=== PATIENT | female | born 1955 | race Caucasian/White ===

== ENCOUNTER → 2018-01-31 16:17 | Outpatient (CLI) | payer OTHER, SELFPAY ==
[2018-02-05 09:25] LABS: HPV Reflexed? NOT INDICATED
== END ==
PROVIDERS: Family Provider Family Medicine; PCP Family Medicine; Visit Provider Family Medicine
DX: R30.0 Dysuria (principal); Z12.4 Encounter for screening for malignant neoplasm of cervix
CPT/HCPCS: 87086; 87088; 88175; G0145

== ENCOUNTER → 2018-02-03 13:15 | Outpatient (CLI) | payer OTHER, SELFPAY ==
[2018-02-03 15:35] LABS: Absolute Lymphocyte Count 2.28 X10^3/ul (0.83-4.51); Absolute Neutrophil Count 4.2 X10^3/uL (2.0-7.7); Basophil# 0.02 X10^3/uL; Basophil% 0.3 % (0-1); Eosinophils% 1.4 % (0-5); Hematocrit 44.5 % (37-47); Hemoglobin 14.5 g/dl (12.0-15.0); Lymphocyte # 2.28 X10^3/ul (4.0); Lymphocyte % 32.1 % (19-41); Mean Corp Hgb Conc 32.6 g/gl (32-36); Mean Corpuscular Volume 95.1 fL (81-99); Mean Platelet Vol. 9.9 fl (6.2-12.0); Monocyte# 0.53 X10^3/uL; Monocyte% 7.5 % (0-10); Neutrophil # 4.17 X10^3/uL (2.7-7.7); Neutrophil % 58.6 % (47-70); Platelet Count 292 K/mm3 (150-450); RBC Distribution Width CV 14.9 % (11.6-14.6); RBC Distribution Width SD 50.6 fl (35.1-43.9); Red Blood Count 4.68 M/mm3 (4.2-5.4); White Blood Count 7.1 K/mm3 (4.4-11.0)
[2018-02-03 15:58] LABS: ALB/GLOB Ratio 1.1 RATIO (0.9-2.4); AST(SGOT) 20 U/L (15-37); Alanine Aminotransfer ALT/SGPT 38 U/L (13-56); Albumin, Serum 3.9 g/dL (3.2-5.0); Alkaline Phosphatase 89 U/L (45-117); Anion Gap 4 (5-15); BUN 19 mg/dL (7-18); BUN/Creat Ratio 24.1 RATIO (10-20); Calcium,Total 8.4 mg/dL (8.5-10.1); Chloride 107 mmol/L (98-107); Cholesterol 183 mg/dL (200); Creatinine, Serum 0.79 mg/dL (0.55-1.02); EST Glomerular Filtration Rate 78 mL/min (>60); Est Glom Filt Rate - Afr Amer 95 mL/min (>60); Globulin 3.7 g/dL (2.2-4.2); Glucose 97 mg/dL (74-106); High Density Lipoprotein 42 mg/dL; Potassium 3.9 mmol/L (3.5-5.1); Protein, Total 7.6 g/dL (6.4-8.2); Sodium Level 139 mmol/L (136-145); Thyroid Stim Hormone (TSH) 1.13 uIU/mL (0.358-3.74); Triglycerides 133 mg/dL; Very Low Density Lipoprotein 27 mg/dL (5-40)
[2018-02-03 16:08] LABS: POSITIVE COUNT NO; POSITIVE DIFFERENTIAL NO; POSITIVE MORPHOLOGY NO
== END ==
PROVIDERS: PCP Family Medicine; Visit Provider Family Medicine
DX: Z01.419 Encounter for gynecological examination (general) (routine) without abnormal findings (principal); E66.9 Obesity, unspecified
CPT/HCPCS: 36415; 80053; 80061; 84443; 85025

== ENCOUNTER → 2018-02-11 16:32 | Outpatient (CLI) | payer OTHER, SELFPAY ==
[2018-02-11 16:35] LABS: Bacteria 0 SEEN /hpf (None Seen); Mucous, Urine 0 SEEN /hpf (<or=2+); Red Blood Cells-Urine 0 SEEN /hpf (0-5); Squamous Epithelial Cells - UA 0 SEEN /hpf (5-10); White Blood Cells 0 SEEN /hpf (0-5)
[2018-02-11 17:23] LABS: Color, Urine Yellow (Yellow); Glucose, Dipstick Normal (Normal); Ketone-Dipstick Negative (Negative); Leukocyte Esterase-Dipstick Negative /ul (Negative); Nitrite-Dipstick Negative (Negative); Occult Blood-Urine Negative /ul (Negative); Protein-Dipstick Negative (Negative); Specific Gravity, Urine 1.025 (1.002-1.030); Urine Bilirubin Dipstick Negative (Negative); Urine Clarity Clear (Clear); Urine Urobilinogen Normal (Normal)
[2018-02-11 17:40] LABS: Uric Acid Crystals Ur 1+ /hpf (<or=1+)
--- OUTSIDE RECORDS SUMMARY | 2018-05-16 05:15 | XMS RPT_ITS ---
:1955 Author Organization [place] Care Team Providers Name Role Phone Diane Sierra Attending Unavailable Diane Sierra Primary Care Unavailable Diane Sierra Attending Unavailable Diane Sierra Primary Care Unavailable Diane Sierra Attending Unavailable PROBLEMS PROBLEMS DATE TYPE CONDITION / CODE ATTENDING STATUS SOURCE 02/11/2018 Unknown N39.0 - Urinary Diane Sierra Active [place] tract infection, Community site not Hospital specified / Repository N39.0(ICD-10) 02/03/2018 Unknown R30.0 - Dysuria Diane Sierra Active [place] / R30.0(ICD-10) [facility] Repository PROCEDURES PROCEDURES No Procedure Records FoundRESULTS RESULTS URINALYSIS, COMPLETE Collected: 02/11/2018 Status: F Source: [place] 4:34 PM [facility] REPOSITORY Order Comment: How was Urine Obtained? Urine, Random TYPE CODE TESTS RESULT OUT OF RANGE REFERENCE UNITS LAB L400.3000 Yellow COLOR Normal Yellow LAB L400.3050 Clear Normal CLARITY Clear LAB L400.3200 Normal mg/dl Normal GLUCOSE, UR Normal LAB L400.3300 Negative mg/dL Normal BILIRUBIN URINE Negative LAB L400.3400 Negative mg/dl Normal KETONE UR Negative LAB L400.3465 1.002-1.030 Normal SP.GR. DIPSTX 1.025 LAB L400.3550 5.0 - 8.0 pH UR Normal 5.0 LAB L400.3600 Negative mg/dl PROT Normal DIPSTX Negative LAB L400.3700 Normal mg/dl Normal UROBILI Normal LAB L400.3750 Negative Normal NITRITE UR Negative LAB L400.3780 Negative /ul Normal OCCULT BLOOD-UR Negative LAB L400.3800 Negative /ul LEUK Normal ESTERASE Negative LAB L400.4050 0-5 /hpf WBC 0 Normal SEEN LAB L400.4100 0-5 /hpf 0 Normal RBC-UA SEEN LAB L400.4150 5-10 /hpf SQUAM 0 Normal EPI SEEN LAB L400.4300 None Seen /hpf 0 Normal BACTERIA SEEN LAB L400.4350 <or=2+ /hpf 0 Normal MUCUS, URINE SEEN LAB L400.4750 <or=1+ /hpf URIC 1+ Normal CRYSTALS Performed By: #### L400.0001 #### [facility] [address] [place], [address] Observed: 02/11/2018 Status: F Source: [place] CULTURE, URINE 4:34 PM [facility] REPOSITORY Urine Culture ORGANISM 1: Mixed Gram Pos AND Gram Neg Org Ruffin Count 1000-10,000 MIX CULTURE Mixed contaminants. Submit a new specimen if indicated. Performed By: #### M100.0650 #### [facility] [address] [place], [address] COMPREHENSIVE METABOLIC Collected: 02/03/2018 Status: F Source: [place] PROFIL 1:19 PM [facility] REPOSITORY TYPE CODE TESTS RESULT OUT OF RANGE REFERENCE UNITS LAB L501.0100 74-106 mg/dL Normal GLU 97 Result Comment: Please note revised GLUCOSE reference range effective 2017. LAB L501.1000 7-18 mg/dL High BUN 19 LAB L501.1100 0.55-1.02 mg/dL Normal CREAT,SERUM 0.79 Result Comment: The validity of the calculated GFR AND GFRAA in patients over 70 years has not been determined. Clinical correlation is essential. LAB L501.1110 >60 mL/min Normal EST GFR 78 Result Comment: Non- GFR Calc LAB L501.1115 >60 mL/min Normal EST GFR - AA 95 Result Comment: GFR Calc LAB L501.1300 10-20 RATIO High BUN/CRE 24.1 LAB L501.1500 6.4-8.2 g/dL T Normal PROT 7.6 LAB L501.1800 3.2-5.0 g/dL Normal ALB 3.9 LAB L501.1950 2.2-4.2 g/dL Normal GLOB 3.7 LAB L501.2000 0.9-2.4 RATIO Normal A/G 1.1 LAB L501.2200 8.5-10.1 mg/dL Low CA 8.4 LAB L501.4100 15-37 U/L Normal AST 20 LAB L501.4305 45-117 U/L Normal ALK P 89 LAB L501.4405 13-56 U/L Normal ALT 38 LAB L501.4600 0.20-1.00 mg/dL T Normal BILI 0.40 LAB L501.5300 136-145 mmol/L NA Normal 139 LAB L501.5600 3.5-5.1 mmol/L K Normal 3.9 LAB L501.5900 98-107 mmol/L CL Normal 107 LAB L501.6100 21.0-32.0 mmol/L Normal CO2 28.0 LAB L501.6200 5-15 Low GAP 4 Performed By: #### L500.4050, L500.4100, L501.9520 #### [facility] [address] [facility] [place], [place], [id number] LIPID PROFILE Collected: 02/03/2018 Status: F Source: [place] 1:19 PM [facility] REPOSITORY TYPE CODE TESTS RESULT OUT OF RANGE REFERENCE UNITS LAB L501.4900 200 mg/dL Normal CHOL 183 Result Comment: <200 mg/dL Desirable 200-240 mg/dL Borderline >240 mg/dL High Risk LAB L501.5000 mg/dL Normal TRIG 133 Result Comment: The drugs N-Acetylcysteine and Metamizole may falsely depress this assay. Serum Triglycerides Reference Interval Normal <150 mg/dL Borderline high 150 - 199 mg/dL High 200 - 499 mg/dL Very High > or = 500 mg/dL LAB L501.6400 mg/dL Normal HDL 42 Result Comment: The drugs N-Acetylcysteine and Metamizole may falsely depress this assay. Reference Range HDL <40 mg/dL Low HDL Cholesterol HDL >or= 60 mg/dL High HDL Cholesterol LAB L501.6500 0-130 mg/dL Normal LDL 114 LAB L501.6600 5-40 mg/dL Normal VLDL 27 Performed By: #### L500.4050, L500.4100, L501.9520 #### [facility] [address] [facility] [facility] [place], [place], [id number] THYROID STIM HORMONE Collected: 02/03/2018 Status: F Source: [place] (TSH) 1:19 PM [facility] REPOSITORY TYPE CODE TESTS RESULT OUT OF RANGE REFERENCE UNITS LAB L501.9520 0.358-3.74 uIU/mL Normal TSH 1.13 Performed By: #### L500.4050, L500.4100, L501.9520 #### [facility] [place], [address] CBC W/DIFF, AUTOMATED Collected: 02/03/2018 Status: F Source: [place] 1:19 PM [facility] REPOSITORY TYPE CODE TESTS RESULT OUT OF RANGE REFERENCE UNITS LAB L100.1000 4.4-11.0 K/mm3 Normal WBC 7.1 LAB L100.1200 4.2-5.4 M/mm3 Normal RBC 4.68 LAB L100.1300 12.0-15.0 g/dl Normal HGB 14.5 LAB L100.1400 37-47 % Normal HCT 44.5 LAB L100.1500 81-99 fL Normal MCV 95.1 LAB L100.1600 27.0-32.0 pg Normal MCH 31.0 LAB L100.1700 32-36 g/gl Normal MCHC 32.6 LAB L100.1810 11.6-14.6 % High RDW CV 14.9 LAB L100.1820 35.1-43.9 fl High RDW SD 50.6 LAB L100.1900 150-450 K/mm3 Normal PLT 292 LAB L100.2000 6.2-12.0 fl Normal MPV 9.9 LAB L100.2100 47-70 % Normal NEUT% 58.6 LAB L100.2200 19-41 % Normal LY% 32.1 LAB L100.2300 0-10 % Normal MONO% 7.5 LAB L100.2400 0-5 % Normal EO% 1.4 LAB L100.2500 0-1 % Normal BASO% 0.3 LAB L100.2550 0.0-0.9 % Normal IM GRAN % 0.100 Result Comment: IG% - Immature Granulocytes (promyelocytes, myelocytes and metamyelocytes) > 1% indicates that a LEFT SHIFT is Present. LAB L100.2620 2.0-7.7 X10 3/uL Normal Absolute Neut 4.2 LAB L100.2720 0.83-4.51 X10 3/ul Normal Absolute Lymph 2.28 Performed By: #### L100.0100 #### [facility] [address] [place], [address] Observed: 01/31/2018 Status: F Source: [place] CULTURE, URINE 4:19 PM [facility] REPOSITORY Urine Culture Group B Streptococcus isolated from culture. ORGANISM 1: Mixed Gram Pos AND Gram Neg Org Ruffin Count >100,000 MIX CULTURE Mixed contaminants. Submit a new specimen if indicated. ORGANISM 2: Gram positive organism Ruffin Count >100,000 Performed By: #### M100.0650 #### [facility] [address] [place], [address] PAP I-G W/RFX HRHPV Collected: 01/31/2018 Status: F Source: [place] 4:19 PM [facility] REPOSITORY Order Comment: CYTOLOGY INFORMATION: - CLINICAL INFORMATION: - DATE LMP/MENOPAUSE: MENOPAUSE - COLLECTION VIAL: Thin Prep Vial - CUSTOMER SERVICES SUPERVISOR SOURCE: CERVICAL/ENDOCERVICAL - COLLECTION TECHNIQUE: CX BROOM ONLY Specimen Comment: [id number] Specimen Comment: Source.............Cervix;Endocervix Specimen Comment: Other..............Post Menopausal Specimen Comment: No. of containers..01 ThinPrep Vial TYPE CODE TESTS RESULT OUT OF RANGE REFERENCE UNITS LAB L7400.0800 . Normal DIAGN Comment Result Comment: NEGATIVE FOR INTRAEPITHELIAL LESION AND MALIGNANCY. LAB L7400.0900 . Normal ADEQ Comment Result Comment: Satisfactory for evaluation. Endocervical and/or squamous metaplastic cells (endocervical component) are present. LAB L7400.1400 . Normal PERFORM Comment Result Comment: Elias Pelayo, Stem Roller Operator (ASCP) LAB L7400.2575 . Normal TEST METHOD Comment Result Comment: This liquid based ThinPrep(R) pap test was screened with the use of an image guided system. LAB L7400.2600 . Normal . COMM LAB L7400.2700 . Normal PAPSMR Comment Result Comment: The Pap smear is a screening test designed to aid in the detection of premalignant and malignant conditions of the uterine cervix. It is not a diagnostic procedure and should not be used as the sole means of detecting cervical cancer. Both false-positive and false-negative reports do occur. LAB L7400.2800 . Normal HPV RFLX Comment Result Comment: The HPV DNA reflex criteria were not met with this specimen result therefore, no HPV testing was performed. Performed at: - [facility] [id number] Steward/Stewardess Second Class: Fide Eugene MD, Phone: [phone] Performed By: #### L7400.0350 #### [facility] (refer to report for specific site) refer to report for address and phone number ALLERGIES ALLERGIES No Allergies Records FoundENCOUNTERS ENCOUNTERS ADMIT/DISCHARGE ACCOUNT ADMITTING ENCOUNTER LOCATION SOURCE NUMBER CLASS 02/11/2018 [id number] Ambulatory [place] [facility] ing:BFHLAB Repository 02/03/2018 [id number] [facility] [place] 0 [facility] ing:BFHLAB Repository 01/31/2018 [id number] [facility] [place] 6 [facility] ing:BFHLAB Repository PAYERS PAYERS ENCOUNTER GUARANTOR PAYER SUBSCRIBER SOURCE [facility]11[facility]2018 [facility] Insurance:[facility]NAFair[facility]en[facility], Number: [id number] [address]Efe: [id number] Repository Date:[id number] [address] () [id number] [place] [id number]: 02/11/2018 Secondary NOT GIVENUNK [place] Insurance:SELF PAY [facility] Number: Effective Repository Date:2018-02-11 02/03/2018 [facility] Tddjoox9571 [place] Insurance:AETNAPolWashington University [facility] CenterenD[facility]: [facility], Number: [id number]-[facility]onc[facility] [address]Afm: [id number] Repository Date:[id number] BOX (GD) [id number] [place] [id number]: 02/03/2018 Secondary NOT GIVENUNK [place] Insurance:SELF PAY [facility] Number: Effective Repository Date:2018-02-03 01/31/2018 [facility] Tatiana Dimasen[address] U[place] Insurance:AETNAPolnicky BrackenDOB: Community [facility], Number: [id number]-Canonc[facility] [address]Sno: [id number] Repository Date:[id number] BOX (RD) [id number] [place] [phone]: 01/31/2018 Secondary NOT GIVENUNK [place] Insurance:SELF PAY [facility] Number: Effective Repository Date:2018-01-31
== END ==
PROVIDERS: Family Provider Family Medicine; PCP Family Medicine; Visit Provider Family Medicine
DX: N39.0 Urinary tract infection, site not specified (principal)
CPT/HCPCS: 81001; 87086; 87088

== ENCOUNTER 2022-03-28 12:08 | Emergency (ER) | payer MEDICARE, SELFPAY ==
[2022-03-28 12:09] VITALS: BP 154/82; PULSE 76; RESP 14; TEMP 36.7; O2SAT 98; BMI 37.6
--- NOTE | 2022-03-28 12:50 | CT_ITS ---
STUDY: CTA CHEST, ABDOMEN T PELVIS WITH CONTRAST REASON FOR EXAM: Female, 66 years old. Pain, syncope RADIATION DOSAGE (If Supplied By Facility): CTDIvol = ( 22.77 ) mGy, DLP = ( 2303.25 ) mGycm TECHNIQUE: Transaxial imaging was performed following intravenous administration of IV 100mL Isovue-370. Multiplanar coronal and sagittal images were reformatted. Individualized dose optimization techniques were used for this CT. COMPARISON: No relevant priors. FINDINGS: CHEST Mild degree of increased markings at the lung bases suggestive of bibasilar atelectasis. There is no demonstrated pleural abnormality. Normal heart and pericardium. Normal mediastinum. Normal hilar regions. Normal unenhanced pulmonary arteries. Normal aorta arch and descending thoracic aorta. There are degenerative changes of the thoracic spine. There is a 2 cm cystic nodule in the posterior aspect of the right lobe of the liver in the region of the dome. Small hiatal hernia. Small cyst is seen in the upper aspect of the left kidney. ABDOMEN 2 cm x 1.4 cm cystic nodule in the posterior aspect of the dome of the liver in the right lobe. Diffuse fatty infiltration. 1 cm cyst in the medial anterior aspect of the right lobe of the liver. Normal gallbladder and extrahepatic biliary system. Normal spleen. Normal pancreas. Normal bilateral adrenal glands. Normal right kidney. 2 cm cyst in the upper pole left kidney. Normal visualized stomach. Normal small intestine. There are scattered colonic diverticula consistent with diverticulosis. The appendix is visualized and appears normal. There is minimal atherosclerotic calcification of the abdominal aorta, without a demonstrated aneurysm. Normal inferior vena cava. Normal retroperitoneum. Normal abdominal wall. There are degenerative changes of the visualized lumbar spine. PELVIS Normal urinary bladder. Calcified fibroid uterus There is no pelvic fluid. There is no pelvic lymphadenopathy or mass lesion. Normal visualized pelvic arteries. CT/CTA Chst, Abd, Pel W and/or WO IMPRESSION: Fatty infiltration of the liver. No evidence of abdominal aortic aneurysm. Hepatic cysts and left renal cyst. Electronically Signed: Kiran Tinsley MD at 14:45 EST ,
--- NOTE | 2022-03-28 12:50 | EKG12_ITS ---
Test Reason : SYNCOPE Blood Pressure : / mmHG Vent. Rate : 078 BPM Atrial Rate : 078 BPM P-R Int : 164 ms QRS Dur : 092 ms QT Int : 394 ms P-R-T Axes : 069 081 048 degrees QTc Int : 449 ms Normal sinus rhythm Normal ECG Confirmed by FRANK BARROSO, YANA ([id number]), book or script editor RUTH ANN FERNÁNDEZ ([id number]) on 03/30/2022 8:51:11 AM Referred By: PL Confirmed By:MARTY MARIE MD
--- NOTE | 2022-03-28 12:52 | EDS_ITS ---
HPI History of Present Illness Chief Complaint: Syncope Informant: patient Narrative Narrative: She hasPatient had a syncopal episode at home. Patient states that her back was bothering her and that just started this morning. She states is not as severe pain is just an ache. But it is across the lower back and a little bit in the front. Had this before but not regularly. She was feeding one of her grandchildren. She felt lightheaded. She then woke up on the ground with a little bit of vomit. No blood was seen in that. Her other grandchild said that she fell and vomited. Patient still has the soreness in the back. Its not worse or different. She has no numbness or tingling. She has never had chest pain palpitations or higher back pain. The pain in her back is all lower near the belt line. Patient has no medical chronic problems. She states she has been told she has had high blood pressure before but is really not been treated. No medications No allergies No recent surgeries Patient has no history of AAA. [facility] Medical History Hypertension Home Medications cephalexin 500 mg capsule 500 mg PO Q12 #20 CAPSULES 03/28/22 [Rx Last Taken Unknown] Allergy/AdvReac Type Severity Reaction Status Date / Time No Known Allergies Allergy Verified 03/28/22 12:14 Social History Smoking Status: Never smoker ROS ROS ED Constitutional Constitutional ED: Denies subjective or sweats Eyes Eyes: Denies blurry vision or change in vision ENT ENT ED: Denies rhinorrhea Cardiovascular Cardiovascular: Denies chest pain, palpitations or racing heartbeat Respiratory/Chest Respiratory/Chest: Denies cough or dyspnea Gastrointestinal Gastrointestinal: Reports abdominal pain and vomiting; Denies constipation, diarrhea, melena or nausea Genitourinary Genitourinary ED: Denies dysuria or hematuria Musculoskeletal Musculoskeletal: Reports back pain Integumentary Denies rash Neurologic Neurologic: Denies headache(s), paresthesias or weakness Endocrine Endocrinology: Denies polydipsia or polyuria Hematologic/Lymphatic Hematologic/Lymphatic: Denies anemia, easy bleeding or easy bruising Allergic/Immunologic Allergic/Immunologic ED: Denies urticaria EXAM Physical Exam Narrative Exam Narrative: Patient is awake alert no acute distress sitting very comfortably in bed. She looks nontoxic and comfortable. HEENT: Normal mucous membranes no tenderness. No pallor. Eyes show no jaundice or pallor Neck is supple no JVD Lungs are completely clear. No pain with a deep breath. Respirations are easy unlabored and she did not at all hypoxic. She has O2 sat at 98% on room air. Heart is regular without murmur gallop or rub. She is not tachycardic or bradycardic. Abdomen is soft. She states she has a little bit of full feeling in the lower abdomen but is not tender to exam. I do not hear a bruit. I do not feel a pulsatile mass but she does carry a little bit of extra weight that may make this difficult. No CVA tenderness. She has some mild nonfocal lower back soreness. She has a little bit of soreness with range of motion 2. Extremities: She has excellent distal pulses in wrists and both ankles. Leg color is normal. There is no cyanosis or mottling. No indication of poor capillary refill or poor perfusion whatsoever. Neurologically she is awake alert appropriate. Normal sensation and strength. Skin shows no pallor or diaphoresis. Const Vital Signs: 03/28/22 12:09 03/28/22 12:15 03/28/22 14:09 Temperature 98.1 F Temperature Source Oral Pulse Rate 76 78 Respiratory Rate 14 18 Respiratory Effort Normal Respiratory Pattern Normal Blood Pressure 154/82 H 134/85 H Blood Pressure Mean 106 101 Pulse Ox 98 99 Oxygen Delivery Method Room Air Room Air MDM MDM MDM Narrative Medical decision making narrative: My independent interpretation of the CTA of the chest abdomen pelvis shows no sign of dissection or aneurysm. I wanted to look at this quickly when it was done due to her story. Final reading also shows no acute process. Her white count shows just a minimal elevation 11.3. She is not at all anemic. Platelets are normal. Electrolytes are normal. Glucose is slightly high at 172 and this can be followed as an outpatient. It does not need acute treatment with medication at this moment. LFTs are normal her urine showed positive n itrites, a large amount of leukocyte Estrace, 25-50 white cells and 4+ bacteria. This was a clean-catch. Since she has so many changes in the urine and she has some pressure across the lower abdomen and lower back I will treat this as a UTI. I will also send a culture. She denies allergies. We will start her on Keflex. If she develops further pain, lightheadedness fevers vomiting or any other symptoms she should return. Lab Data Attestation: I reviewed the patient's lab results. Labs: Laboratory Results - last 24 hr 03/28/22 03/28/22 03/28/22 12:54 12:54 14:00 WBC 11.3 H RBC 4.73 Hgb 13.9 Hct 44.8 MCV 94.7 MCH 29.4 MCHC 31.0 L RDW Std Deviation 48.8 H RDW Coeff of Yonis 13.9 Plt Count 311 MPV 9.4 Immature Gran % (Auto) 1.100 H Neut % (Auto) 81.2 H Lymph % (Auto) 11.9 L Boyle % (Auto) 5.0 Eos % (Auto) 0.4 Baso % (Auto) 0.4 Absolute Neuts (auto) 9.2 H Absolute Lymphs (auto) 1.35 Nucleated RBC % 0 Sodium 142 Potassium 3.6 Chloride 107 Carbon Dioxide 27.0 Anion Gap 8 BUN 19 H Creatinine 0.98 Estim Creat Clear Calc 50.81 Est GFR (MDRD) Af Amer 73 Est GFR (MDRD) Non-Af 60 BUN/Creatinine Ratio 19.4 Glucose 172 H Calcium 9.2 Total Bilirubin 0.40 AST 21 ALT 34 Alkaline Phosphatase 85 Total Protein 7.6 Albumin 4.0 Globulin 3.6 Albumin/Globulin Ratio 1.1 Urine Color Yellow Urine Clarity Clear Urine pH 6.0 Ur Specific [place] 1.015 Urine Protein 15 H Urine Glucose (UA) Normal Urine Ketones Negative Urine Occult Blood Negative Urine Nitrite Positive H Urine Bilirubin Negative Urine Urobilinogen Normal Ur Leukocyte Esterase 500 H Urine RBC 0 SEEN Urine WBC 25-50 SEEN Ur Squamous Epith Cells 0 SEEN Urine Bacteria 4+ Urine Mucus 0 SEEN Radiography Diagnostic Testing: Clinical Impression(s) from Imaging Studies Chest/Abdomen/Pelvis CTA 03/28/22 12:50 IMPRESSION: Fatty infiltration of the liver. No evidence of abdominal aortic aneurysm. Hepatic cysts and left renal cyst. Electronically Signed: Kiran Tinsley MD at 14:45 EST , EKG Initial EKG: Comments: My independent interpretation of the EKG done for syncope shows a normal sinus rhythm with overall rate of 78. No ventricular ectopy. No acute ST elevation or depression. AL interval, QRS duration and QTc are normal. Discharge Plan Triage Chief Complaint: Syncope ED Provider: Curtis Rivera Dx/Rx/DC Orders Clinical Impression: Syncope and collapse, Vomiting, Back pain, Abdominal pain, Urinary tract infection Instructions: Urinary Tract Infections in Women, ED Fainting, Uncertain Cause Prescriptions: New cephalexin [cephalexin] 500 mg capsule 500 mg PO Q12 Qty: 20 0RF Primary Care Provider: Diane Sierra Referrals: Diane Sierra MD [Primary Care Provider] - 1 Week Disposition Disposition: Home, Self Care
[2022-03-28 13:08] LABS: Absolute Lymphocyte Count 1.35 X10^3/uL (0.83-4.51); Absolute Neutrophil Count 9.2 X10^3/uL (2.0-7.7); Basophil# 0.04 X10^3/uL; Basophil% 0.4 % (0-1); Eosinophil# 0.05 X10^3/uL; Eosinophils% 0.4 % (0-5); Hematocrit 44.8 % (37-47); Hemoglobin 13.9 g/dL (12.0-15.0); Lymphocyte # 1.35 X10^3/ul (0.83-4.51); Lymphocyte % 11.9 % (19-41); Mean Corpuscular Hgb 29.4 pg (27.0-32.0); Mean Corpuscular Volume 94.7 fL (81-99); Mean Platelet Vol. 9.4 fl (6.2-12.0); Monocyte# 0.57 X10^3/uL; NRBC Flagged by Analyzer 0 % (0-5); Neutrophil % 81.2 % (47-70); Platelet Count 311 K/mm3 (150-450); RBC Distribution Width CV 13.9 % (11.6-14.6); RBC Distribution Width SD 48.8 fl (35.1-43.9); Red Blood Count 4.73 M/mm3 (4.2-5.4); White Blood Count 11.3 K/mm3 (4.4-11.0)
[2022-03-28 13:28] LABS: ALB/GLOB Ratio 1.1 RATIO (0.9-2.4); AST(SGOT) 21 U/L (15-37); Alanine Aminotransfer ALT/SGPT 34 U/L (13-56); Alkaline Phosphatase 85 U/L (45-117); Anion Gap 8 (5-15); BUN 19 mg/dL (7-18); BUN/Creat Ratio 19.4 RATIO (10-20); Calcium,Total 9.2 mg/dL (8.5-10.1); Chloride 107 mmol/L (98-107); Creatinine, Serum 0.98 mg/dL (0.55-1.02); EST Glomerular Filtration Rate 60 mL/min (>60); Est Glom Filt Rate - Afr Amer 73 mL/min (>60); Estimated Creatinine Clearance 50.81 ml/min; Globulin 3.6 g/dL (2.2-4.2); Glucose 172 mg/dL (74-106); Potassium 3.6 mmol/L (3.5-5.1); Protein, Total 7.6 g/dL (6.4-8.2); Sodium Level 142 mmol/L (136-145)
[2022-03-28 14:09] VITALS: BP 134/85; PULSE 78; RESP 18; O2SAT 99
[2022-03-28 14:11] LABS: Mucous, Urine 0 SEEN /hpf (<or=2+); Red Blood Cells-Urine 0 SEEN /hpf (0-5); Squamous Epithelial Cells - UA 0 SEEN /hpf (5-10)
[2022-03-28 14:13] LABS: Color, Urine Yellow (Yellow); Glucose, Dipstick Normal (Normal); Ketone-Dipstick Negative (Negative); Leukocyte Esterase-Dipstick 500 /ul (Negative); Nitrite-Dipstick Positive (Negative); Occult Blood-Urine Negative /ul (Negative); Protein-Dipstick 15 mg/dl (Negative); Specific Gravity, Urine 1.015 (1.002-1.030); Urine Bilirubin Dipstick Negative (Negative); Urine Clarity Clear (Clear); Urine Urobilinogen Normal (Normal)
[2022-03-28 14:21] LABS: White Blood Cells 25-50 SEEN /hpf (0-5)
[2022-03-28 14:22] LABS: Bacteria 4+ /hpf (None Seen)
[2022-03-28] MEDS: Cephalexin 250 MG Capsule 500 MG PO (15:31)
[2022-03-28 15:37] VITALS: BP 155/90; PULSE 73; RESP 15; O2SAT 99
== END 2022-03-28 15:37 | disposition home or self-care (01) ==
PROVIDERS: Emergency Provider Emergency Medicine; PCP Family Medicine; Visit Provider Emergency Medicine
DX: R55 Syncope and collapse (principal); N39.0 Urinary tract infection, site not specified; I10 Essential (primary) hypertension; R11.10 Vomiting, unspecified; R73.9 Hyperglycemia, unspecified; R10.9 Unspecified abdominal pain
CPT/HCPCS: 71275; 74174; 80053; 81001; 85025; 87086; 87088; 87186; 93005; 99285; Q9967; A4216